=== PATIENT | female | born 1990 | race American Indian/Alaskan Native ===

== ENCOUNTER 2023-09-11 07:29 | Inpatient (IN) | payer BC ==
[2023-09-11] MEDS ORDERED: Sodium Chloride 0.9% 20 ML SDV IV PRN (07:48)
[2023-09-11] MEDS ORDERED: Sodium Chloride 0.9% 2.5 ML Syringe FLUSH PRN (07:48)
[2023-09-11] MEDS ORDERED: Sodium Chloride 0.9% 10 ML Syringe FLUSH PRN (07:48)
[2023-09-11] MEDS ORDERED: ceFAZolin 2 GM in Sodium Chloride 0.9% 50 ML IV ONE (07:48)
[2023-09-11] MEDS ORDERED: Citric Acid/Sodium Citrate Solution 30 ML Cup PO ONE (07:48)
[2023-09-11] MEDS ORDERED: Lactated Ringers 1,000 ML IV SCH (08:00)
[2023-09-11] MEDS ORDERED: Oxytocin/0.9 % Sodium Chloride 30 UNIT/500 ML BAG IV SCH (08:00)
[2023-09-11 08:14] LABS: HEMATOCRIT 37.7 % (37.0-47.0); HEMOGLOBIN 12.8 g/dL (12.0-16.0); MEAN CORPUSCULAR HEMOGLOBIN 28.1 pg (28.0-32.0); MEAN CORPUSCULAR VOLUME 82.9 fL (83.0-99.0); MEAN PLATELET VOLUME 9.9 fL (9.4-12.3); PLATELET COUNT,PLT 309 K/uL (150-400); RED BLOOD CELL COUNT 4.55 M/uL (4.10-5.30); WHITE BLOOD CELL COUNT,WBC 10.59 K/uL (3.9-11.3)
[2023-09-11] MEDS ORDERED: Ketorolac 30 MG/ML SDV ONE (09:00)
[2023-09-11] MEDS ORDERED: Oxytocin 10 Units/1 ML SDV ONE (09:00)
[2023-09-11] MEDS ORDERED: ceFAZolin 1 GM Vial ONE ×2 (09:00→09:28)
[2023-09-11] MEDS ORDERED: Ropivacaine 0.5% 5 MG/ML 30 ML SDV ONE (09:00)
[2023-09-11] MEDS ORDERED: Ondansetron 4 MG/2 ML SDV ONE (09:00)
[2023-09-11] MEDS ORDERED: Bupivacaine 0.25% 30 ML SDV ONE (09:00)
[2023-09-11] MEDS ORDERED: EPINEPHrine 1 MG/1 ML Amp ONE (09:00)
[2023-09-11] MEDS ORDERED: fentaNYL 100 MCG/2 ML SDV ONE (09:01)
[2023-09-11] MEDS ORDERED: Morphine PF 10 MG/10 ML SDV ONE (09:01)
[2023-09-11] MEDS ORDERED: Calcium Chloride 10% 1 GM/10 ML Syringe ONE (09:32)
[2023-09-11] MEDS ORDERED: Tranexamic Acid 1,000 MG/10 ML Vial ONE (09:32)
[2023-09-11] MEDS ORDERED: Phenylephrine HCl In 0.9% NaCl 1 MG/10 ML Syringe ONE ×2 (09:34→09:58)
[2023-09-11] MEDS ORDERED: ePHEDrine 50 MG/ML SDV ONE (10:02)
[2023-09-11] MEDS ORDERED: Misoprostol 200 MCG Tab RECTAL PRN (10:25)
[2023-09-11] MEDS ORDERED: Acetaminophen/oxyCODONE 325-5 MG Tab PO PRN ×2 (10:25→10:47)
[2023-09-11] MEDS ORDERED: Lanolin 100% Cream 7 GM Tube TOP PRN (10:25)
[2023-09-11] MEDS ORDERED: Bisacodyl 10 MG Supp RECTAL PRN (10:25)
[2023-09-11] MEDS ORDERED: Methylergonovine 0.2 MG/1 ML Amp IM PRN (10:25)
[2023-09-11] MEDS ORDERED: Ondansetron 4 MG/2 ML SDV IVPUSH PRN ×3 (10:25→10:47)
[2023-09-11] MEDS ORDERED: Oxytocin 10 Units/1 ML SDV IM PRN (10:25)
[2023-09-11 10:30] LABS: PH,UMBILICAL ARTERIAL 7.208 (7.18-7.38); PH,UMBILICAL VENOUS 7.263 (7.25-7.45)
[2023-09-11] MEDS ORDERED: fentaNYL 50 MCG/ML SDV IVPUSH PRN (10:47)
[2023-09-11] MEDS ORDERED: fentaNYL 100 MCG/2 ML SDV IVPUSH PRN (10:47)
[2023-09-11] MEDS ORDERED: HYDROmorphone 1 MG/ML Syringe IVPUSH PRN (10:47)
[2023-09-11] MEDS ORDERED: diphenhydrAMINE 50 MG/ML SDV IVPUSH PRN (10:47)
[2023-09-11] MEDS ORDERED: droPERidol 5 MG/2 ML SDV IVPUSH PRN (10:47)
[2023-09-11] MEDS ORDERED: Morphine 2 MG/ML SYRINGE IVPUSH PRN (10:47)
[2023-09-11] MEDS ORDERED: Metoclopramide 10 MG/2 ML SDV IVPUSH PRN (10:47)
[2023-09-11] MEDS ORDERED: Albuterol 0.083% 2.5 MG/3 ML Neb Soln NEB PRN (10:47)
[2023-09-11] MEDS ORDERED: Naloxone 0.4 MG/ML SDV IVPUSH PRN (10:47)
[2023-09-11] MEDS ORDERED: ePHEDrine 50 MG/ML SDV IVPUSH PRN (10:47)
[2023-09-11] MEDS: diphenhydrAMINE 50 MG/ML SDV IVPUSH PRN (11:05)
[2023-09-11] MEDS: Simethicone 80 MG Tab.Chew PO SCH (11:59)
[2023-09-11] MEDS: Acetaminophen 1,000 MG in Premix Bag 1 BAG IV SCH (11:59)
[2023-09-11] MEDS: Lactated Ringers 1,000 ML IV SCH (12:00)
[2023-09-11] MEDS: Labetalol 100 MG Tab PO ONE (12:00)
[2023-09-11] MEDS: Labetalol 100 MG Tab PO SCH (13:23)
[2023-09-11] MEDS ORDERED: Ketorolac 30 MG/ML SDV IVPUSH SCH (15:00)
[2023-09-11] MEDS: Ketorolac 30 MG/ML SDV IVPUSH SCH (15:38)
[2023-09-11] MEDS: Docusate Sodium 100 MG Cap PO SCH (21:03)
[2023-09-12 05:44] LABS: HEMATOCRIT 30.4 % (37.0-47.0); HEMOGLOBIN 10.1 g/dL (12.0-16.0)
[2023-09-12] MEDS: Acetaminophen/oxyCODONE 325-5 MG Tab PO PRN (14:00)
[2023-09-13] MEDS: Ibuprofen 800 MG Tab PO PRN (13:01)
== END 2023-09-13 13:20 | disposition home or self-care (01) | DRG 540 ==
LOC: MW.OB 07:29 → OBSVTOIN 07:48 → MW.OB 14:49
PROVIDERS: ADMIT Obstetrics & Gynecology; ATTEND Obstetrics & Gynecology
PROC: 3E0334Z Introduction of Serum, Toxoid and Vaccine into Peripheral Vein, Percutaneous Approach (ICD-10-PCS; 2023-09-11)
PROC: 10D00Z1 Extraction of Products of Conception, Low, Open Approach (ICD-10-PCS; principal; 2023-09-11 09:30)
DX: O34.211 Maternal care for low transverse scar from previous cesarean delivery (principal); O13.4 Gestational [pregnancy-induced] hypertension without significant proteinuria, complicating childbirth; O99.214 Obesity complicating childbirth; O36.5930 Maternal care for other known or suspected poor fetal growth, third trimester, not applicable or unspecified; E66.01 Morbid (severe) obesity due to excess calories; O26.893 Other specified pregnancy related conditions, third trimester; Z67.11 Type A blood, Rh negative; Z37.0 Single live birth; Z3A.38 38 weeks gestation of pregnancy
CPT/HCPCS: 01961; 36415; 59025; 64488; 82803; 85014; 85018; 85027; 85460; 86592; 86850; 86900; 86901; A9270-GY; J0131; J0171; J0665; J0690; J1100; J1200; J1885; J2274; J2371; J2405; J2590; J2790; J2795; J3010; J3490; J7120